=== PATIENT | male | born 1965 | race Caucasian/White ===

== ENCOUNTER 2017-06-19 12:25 | Emergency (ER) | payer SELFPAY ==
[~2017-06-19] VITALS: Ht 190.5 cm; Wt 111.3 kg
[2017-06-19] MEDS ORDERED: INDOCIN50 MG PO (14:52)
[2017-06-19] MEDS ORDERED: KEFLEX500 MG PO (14:52)
[2017-06-19 14:57] VITALS: BP 158/97
== END 2017-06-19 14:53 | disposition home or self-care (01) ==
LOC: EME 12:25
DX: S90.861A Insect bite (nonvenomous), right foot, initial encounter (principal); W57.XXXA Bitten or stung by nonvenomous insect and other nonvenomous arthropods, initial encounter
CPT/HCPCS: 99281; 99283